=== PATIENT | female | born 1995 | race Caucasian/White ===

== ENCOUNTER 2018-03-21 18:16 | Emergency (ER) | payer OTHER ==
[2018-03-21 18:27] VITALS: BP 131/76; PULSE 88; BMI 38.7
--- NOTE | 2018-03-21 18:40 | PDOC ---
History of Present Illness - General Chief Complaint: Pain Stated Complaint: LT NECK PAIN Time Seen by Provider: 03/21/18 18:40 History Source: Patient Exam Limitations: No Limitations - History of Present Illness Initial Comments: 03/21/18 19:07 Patient was playing with small cousin on [employer] when attempting to walk the tight rope fell wrenching the left side of her neck Occurred: reports: just prior to arrival Severity: reports: mild, moderate Pain Location: reports: neck Method of Injury: Yes: direct blow, fall Modifying Factors: improves with: None Loss of Consciousness: no loss of consciousness Associated Symptoms (Fall): denies symptoms, headache, muscle spasms Past History - Travel Traveled outside of the country in the last 30 days: No Close contact w/someone who was outside of country & ill: No - Past Medical History Allergies/Adverse Reactions: Allergies Allergy/AdvReac Type Severity Reaction Status Date / Time No Known Allergies Allergy Verified 03/21/18 18:24 Home Medications: Ambulatory Orders Cyclobenzaprine HCl 10 mg PO Q8H PRN #14 tablet 03/21/18 Naproxen [Naprosyn -] 500 mg PO BID #30 tablet 03/21/18 COPD: No - Suicide/Smoking/Psychosocial Hx Smoking History: Never smoked Review of Systems - Review of Systems Able to Perform ROS?: Yes Is the patient limited Mexican proficient: Yes Constitutional: Yes: Symptoms Reported, See HPI, Malaise HEENTM: Yes: See HPI. No: Symptoms Reported, Eye Pain Respiratory: No: Symptoms reported Cardiac (ROS): No: Symptoms Reported Neurological: Yes: Symptoms reported, See HPI, Headache All Other Systems: Reviewed and Negative *Physical Exam - Vital Signs Last Vital Signs Temp Pulse Resp BP Pulse Ox 88 16 131/76 99 03/21/18 18:25 03/21/18 18:25 03/21/18 18:25 03/21/18 18:25 - Physical Exam General Appearance: Yes: Nourished, Appropriately Dressed, Apparent Distress, Mild Distress HEENT: positive: RIGOBERTO, Normal ENT Inspection, TMs Normal, Pharynx Normal Neck: positive: Tender, Supple Respiratory/Chest: positive: Lungs Clear Gastrointestinal/Abdominal: positive: Soft Musculoskeletal: positive: Normal Inspection, Muscle Spasm. negative: Vertebral Tenderness Extremity: positive: Normal Inspection, Normal Range of Motion Integumentary: positive: Normal Color, Pale Neurologic: positive: truck terminal manager II-XII NML intact, Fully Oriented, Alert, Normal Mood/ Affect, Normal Response, Motor Strength 5/5 Progress Note - Progress Note Progress Note: Neck strain, with NSAIDs and cyclobenzaprine *DC/Admit/Observation/Transfer Diagnosis at time of Disposition: Cervical muscle strain Qualifiers: Encounter type: initial encounter Qualified Code(s): S16.1XXA - Strain of muscle, fascia and tendon at neck level, initial encounter - Discharge Dispostion Disposition: HOME Condition at time of disposition: Stable Decision to Admit order: No - Referrals - Patient Instructions Printed Discharge Instructions: DI for Cervical Muscle Strain Additional Instructions: Rest, no heavy lifting or exercise until pain is resolved Hot soaks to neck and low back as often as possible/hot showers or Jacuzzis No massage or therapy until spasm is gone Continue Naprosyn 500 mg tablet, 1 tablet every 12 hours for the next 3 days then as needed for pain and swelling Cyclobenzaprine 1-10mg every 8 hours as needed for spasm If not significant improvement within 24 hours with medication and rest regime, followup with private physician for change in medications and /or therapy. - Post Discharge Activity Forms/Work/School Notes: Back to Work
[2018-03-21] MEDS ORDERED: KETOROLAC TROMETHAMINE 60 MG/2 ML VIAL IM ONE (19:08)
[2018-03-21] MEDS ORDERED: KETOROLAC TROMETHAMINE 60 MG/2 ML VIAL ONE (19:11)
[2018-03-21] MEDS ORDERED: CYCLOBENZAPRINE HCL 10 MG TABLET (FP) ONE (19:30)
[2018-03-21] MEDS ORDERED: CYCLOBENZAPRINE HCL 10 MG TABLET (FP) PO ONE (19:35)
== END 2018-03-21 19:44 | disposition home or self-care (01) ==
LOC: JERFT 18:16
PROC: 3E0233Z Introduction of Anti-inflammatory into Muscle, Percutaneous Approach (ICD-10-PCS; principal; 2018-03-21)
DX: S16.1XXA Strain of muscle, fascia and tendon at neck level, initial encounter (principal); W17.89XA Other fall from one level to another, initial encounter; Y93.89 Activity, other specified; Y92.038 Other place in apartment as the place of occurrence of the external cause; Y99.8 Other external cause status
CPT/HCPCS: 96372; 99281-25

== ENCOUNTER 2023-05-24 08:18 | Emergency (ER) | payer OTHER ==
[2023-05-24 08:33] VITALS: RESP 16; BMI 43.0
[2023-05-24 08:57] LABS: PH,URINE 5.5 (5.0-8.0); URINE APPEARANCE CLEAR; URINE BILIRUBIN NEGATIVE (NEGATIVE); URINE COLOR DK YELLOW; URINE GLUCOSE (UA) NEGATIVE (NEGATIVE); URINE KETONE NEGATIVE (NEGATIVE); URINE LEUK ESTERASE NEGATIVE (NEGATIVE); URINE NITRITE NEGATIVE (NEGATIVE); URINE PROTEIN TRACE (NEGATIVE); URINE UROBILINOGEN 0.2 mg/dL (0.2-1.0)
[2023-05-24 10:07] LABS: BASO % 0.5 % (0-2.0); EOS % 0.2 % (0-4.5); HEMATOCRIT 39.4 % (32.4-45.2); HEMOGLOBIN 13.2 GM/dL (10.7-15.3); LYMPH % 16.7 % (8-40); MCH 29.7 pg (25.7-33.7); MCHC 33.5 g/dl (32.0-36.0); MEAN CELL VOLUME 88.6 fl (80-96); MEAN PLT VOLUME 9.9 fl (7.5-11.1); MONO % 5.7 % (3.8-10.2); NEUT % 76.9 % (42.8-82.8); PLATELET COUNT 320 10^3/uL (134-434); RBC 4.45 M/mm3 (3.60-5.2); RDW 14.1 % (11.6-15.6); WHITE BLOOD COUNT 7.3 K/mm3 (4.0-10.0)
[2023-05-24 10:30] LABS: POTASSIUM 4.1 mmol/L (3.5-5.1)
[2023-05-24 10:33] LABS: ALBUMIN 3.6 g/dl (3.4-5.0); CALCIUM 9.5 mg/dL (8.5-10.1)
[2023-05-24 10:35] LABS: BLOOD UREA NITROGEN 11.3 mg/dL (7-18)
[2023-05-24 10:37] LABS: BILIRUBIN,TOTAL 0.5 mg/dL (0.2-1); CREATININE 0.5 mg/dL (0.55-1.3); TOT PROT 7.8 g/dl (6.4-8.2)
[2023-05-24 12:38] VITALS: BP 138/83; PULSE 82; TEMP 98.6
== END 2023-05-24 12:52 | disposition home or self-care (01) ==
LOC: JER 08:18
DX: O26.891 Other specified pregnancy related conditions, first trimester (principal); R10.31 Right lower quadrant pain; R11.0 Nausea; O21.9 Vomiting of pregnancy, unspecified; O99.611 Diseases of the digestive system complicating pregnancy, first trimester; K59.00 Constipation, unspecified; Z3A.00 Weeks of gestation of pregnancy not specified
CPT/HCPCS: 36415; 76817-TC; 80053; 81003; 83690; 84702; 84703; 85025; 87086; 99284-25

== ENCOUNTER 2023-06-27 15:43 | Emergency (ER) | payer OTHER ==
[2023-06-27 15:53] VITALS: BP 138/84; PULSE 110; RESP 18; TEMP 98.2; BMI 94.8
[2023-06-27] MEDS ORDERED: ONDANSETRON 4 MG/2 ML VIAL IVPUSH ONE (15:54)
[2023-06-27] MEDS ORDERED: SODIUM CHLORIDE 0.9% 500 ML INFUS.BAG IV ONE (15:54)
[2023-06-27] MEDS ORDERED: ACETAMINOPHEN 1000 MG/100 ML BAG IVPB ONE (15:54)
[2023-06-27] MEDS ORDERED: ACETAMINOPHEN INJECTION 100 ML IVPB ONE (16:25)
[2023-06-27] MEDS ORDERED: ONDANSETRON 4 MG/2 ML VIAL ONE (16:25)
[2023-06-27 16:34] LABS: HEMATOCRIT 39.1 % (32.4-45.2); HEMOGLOBIN 13.4 GM/dL (10.7-15.3); MCH 30.6 pg (25.7-33.7); MCHC 34.2 g/dl (32.0-36.0); MEAN CELL VOLUME 89.5 fl (80-96); MEAN PLT VOLUME 9.9 fl (7.5-11.1); PLATELET COUNT 297 10^3/uL (134-434); RBC 4.37 M/mm3 (3.60-5.2); RDW 13.5 % (11.6-15.6); WHITE BLOOD COUNT 10.2 K/mm3 (4.0-10.0)
[2023-06-27 16:48] LABS: EPI CELLS >36 /uL (0-25.1); HYALINE CASTS 5 /uL (0-3.1); PH,URINE 5.5 (5.0-8.0); URINE APPEARANCE CLOUDY; URINE BACTERIA 350 /uL (0-1359); URINE BILIRUBIN 1+ (NEGATIVE); URINE COLOR DK YELLOW; URINE GLUCOSE (UA) NEGATIVE (NEGATIVE); URINE KETONE 2+ (NEGATIVE); URINE LEUK ESTERASE NEGATIVE (NEGATIVE); URINE NITRITE NEGATIVE (NEGATIVE); URINE PROTEIN 1+ (NEGATIVE); URINE WBC 23 /uL (0-25.8)
[2023-06-27 17:07] LABS: POTASSIUM 3.8 mmol/L (3.5-5.1)
[2023-06-27 17:08] LABS: CALCIUM 8.8 mg/dL (8.5-10.1)
[2023-06-27 17:09] LABS: ALBUMIN 2.9 g/dl (3.4-5.0); BLOOD UREA NITROGEN 10.2 mg/dL (7-18)
[2023-06-27 17:12] LABS: CREATININE 0.5 mg/dL (0.55-1.3)
[2023-06-27 17:14] LABS: BILIRUBIN,TOTAL 0.6 mg/dL (0.2-1)
[2023-06-27 17:41] LABS: ANISOCYTOSIS 0; MACROCYTOSIS 0
[2023-06-27 18:08] LABS: URINE RBC 31.9 /uL (0-23.9)
== END 2023-06-27 18:32 | disposition home or self-care (01) ==
LOC: JER 15:43
PROC: 3E033NZ Introduction of Analgesics, Hypnotics, Sedatives into Peripheral Vein, Percutaneous Approach (ICD-10-PCS; principal; 2023-06-27)
PROC: 3E033NZ Introduction of Analgesics, Hypnotics, Sedatives into Peripheral Vein, Percutaneous Approach (ICD-10-PCS; 2023-06-27)
DX: O98.519 Other viral diseases complicating pregnancy, unspecified trimester (principal); U07.1 COVID-19; O21.9 Vomiting of pregnancy, unspecified; Z3A.11 11 weeks gestation of pregnancy
CPT/HCPCS: 0241U-QW; 36415; 80053; 81003; 85025; 87086; 99284-25; J0131

== ENCOUNTER 2024-01-14 06:13 | Inpatient (IN) | payer OTHER ==
[2024-01-14] MEDS: ELECTROLYTE-148 SOLN 1,000 ML IV SCH (07:40)
[2024-01-14] MEDS ORDERED: AMPICILLIN SODIUM 2 GM VIAL ONE (07:50)
[2024-01-14] MEDS: AMPICILLIN - 2 GM in SODIUM CHLORIDE 100 ML IVPB ONE (07:57)
[2024-01-14 08:35] LABS: BASO % 0.4 % (0-2.0); HEMATOCRIT 36.2 % (32.4-45.2); HEMOGLOBIN 12.4 GM/dL (10.7-15.3); LYMPH % 8.7 % (8-40); MCHC 34.4 g/dl (32.0-36.0); MEAN CELL VOLUME 90.1 fl (80-96); MEAN PLT VOLUME 10.6 fl (7.5-11.1); MONO % 2.9 % (3.8-10.2); PLATELET COUNT 248 10^3/uL (134-434); RBC 4.01 M/mm3 (3.60-5.2); RDW 13.8 % (11.6-15.6); WHITE BLOOD COUNT 14.5 K/mm3 (4.0-10.0)
[2024-01-14 08:52] VITALS: BMI 43.2
[2024-01-14 09:04] LABS: BLOOD UREA NITROGEN 11.1 mg/dL (7-18); CALCIUM 8.6 mg/dL (8.5-10.1)
[2024-01-14 09:07] LABS: CREATININE 0.6 mg/dL (0.55-1.3)
[2024-01-14] MEDS ORDERED: FENTANYL/BUPIVACAINE/NS/PF - PCEA - 50 ML DISP.SYRIN EP ONE ×5 (09:22→20:59)
[2024-01-14 09:30] LABS: INR 1.02 (0.83-1.09); PROTHROMBIN TIME (PATIENT) 11.5 SEC (9.7-13.0)
[2024-01-14] MEDS: FENTANYL/BUPIVACAINE/NS/PF - PCEA - 50 ML DISP.SYRIN EP SCH (09:40)
[2024-01-14] MEDS ORDERED: NALOXONE HCL 0.4 MG/ML VIAL IVPUSH PRN (09:47)
[2024-01-14] MEDS ORDERED: AMPICILLIN SODIUM 1 GM VIAL ONE ×3 (11:11→19:58)
[2024-01-14] MEDS: AMPICILLIN - 1 GM in SODIUM CHLORIDE 100 ML IVPB SCH (11:20)
[2024-01-14 12:27] LABS: HIV INTERPRETATION NEGATIVE (NEGATIVE)
[2024-01-14] MEDS ORDERED: OXYTOCIN 30 UNITS in 0.9% NS 30 UNIT/500 ML INFUS.BAG IVPB ONE ×2 (12:54→22:35)
[2024-01-14] MEDS: OXYTOCIN 30 UNITS in 0.9% NS 30 UNIT/500 ML INFUS.BAG IVPB SCH (13:00)
[2024-01-14] MEDS ORDERED: FENTANYL CITRATE/PF 50 MCG/ML VIAL ONE ×3 (15:54→18:28)
[2024-01-14] MEDS ORDERED: BUPIVACAINE HCL/PF 0.25% (2.5MG/ML) 10 ML VIAL ONE ×3 (15:54→18:28)
[2024-01-14] MEDS ORDERED: SODIUM CHLORIDE 100 ML IVPB ONE (19:58)
[2024-01-14] MEDS ORDERED: ACETAMINOPHEN 325 MG TABLET (FP) PO PRN (22:24)
[2024-01-14] MEDS ORDERED: IBUPROFEN 600 MG TABLET (FP) PO PRN (22:24)
[2024-01-14] MEDS ORDERED: LIDO 2%/EPI 1:200000 PRESRVFRE (20 ML SDVIAL) ONE (22:34)
[2024-01-14] MEDS ORDERED: morphine SULFATE/PF 1 MG/2 ML (2cc Syringe - QUVA) ONE (22:55)
[2024-01-14] MEDS ORDERED: ceFAZolin SODIUM 1 GM VIAL ONE (22:55)
[2024-01-15] MEDS ORDERED: METHYLERGONOVINE MALEATE 0.2 MG/1 ML AMP IM PRN
[2024-01-15] MEDS: OXYTOCIN 20 UNITS in 0.9% NS 20 UNIT/1,000 ML INFUS.BAG IV SCH (00:30)
[2024-01-15] MEDS ORDERED: OXYTOCIN 20 UNITS in 0.9% NS 20 UNIT/1,000 ML INFUS.BAG IV ONE (00:34)
[2024-01-15 02:00] LABS: CORD BASE EXCESS -7.1 mmol/L (0-2); CORD HCO3 18.4 mmHg (20-29); CORD PCO2 37.6 mmHg (30-78); CORD pH 7.308 (7.14-7.44)
[2024-01-15] MEDS: CEFAZOLIN SODIUM 2 GM in DEXTROSE 5%-WATER 100 ML IVPB ONE (03:14)
[2024-01-15] MEDS: IBUPROFEN 800 MG/8 ML IJ IVPB PRN (03:17)
[2024-01-15] MEDS: OXYTOCIN 30 UNITS in 0.9% NS 30 UNIT/500 ML INFUS.BAG IVPB SCH (03:18)
[2024-01-15] MEDS: DIPHTH,PERTUSS(ACELL),TET 0.5 ML DISP.SYRIN IM ONE (11:16)
[2024-01-15] MEDS ORDERED: oxyCODONE HCL 5 MG TABLET PO PRN (12:01)
[2024-01-15] MEDS: IBUPROFEN 600 MG TABLET (FP) PO PRN (15:07)
[2024-01-15] MEDS: ACETAMINOPHEN 325 MG TABLET (FP) PO PRN (17:12)
[2024-01-15] MEDS: SIMETHICONE 80 MG TAB.CHEW (FP) PO PRN (21:27)
[2024-01-15] MEDS: ONDANSETRON 4 MG/2 ML VIAL IVPUSH PRN (21:35)
[2024-01-15] MEDS: oxyCODONE HCL 5 MG TABLET PO PRN (22:56)
[2024-01-16] MEDS ORDERED: BISACODYL 10 MG SUPP.RECT RC PRN (00:01)
[2024-01-16 07:58] LABS: BASO % 0.5 % (0-2.0); EOS % 0.7 % (0-4.5); HEMATOCRIT 29.1 % (32.4-45.2); HEMOGLOBIN 9.8 GM/dL (10.7-15.3); LYMPH % 13.4 % (8-40); MCH 31.3 pg (25.7-33.7); MCHC 33.6 g/dl (32.0-36.0); MEAN CELL VOLUME 93.2 fl (80-96); MEAN PLT VOLUME 10.6 fl (7.5-11.1); MONO % 5.4 % (3.8-10.2); PLATELET COUNT 177 10^3/uL (134-434); RBC 3.12 M/mm3 (3.60-5.2); WHITE BLOOD COUNT 10.4 K/mm3 (4.0-10.0)
[2024-01-18 07:52] LABS: BASO % 0.3 % (0-2.0); EOS % 2.5 % (0-4.5); HEMATOCRIT 30.4 % (32.4-45.2); HEMOGLOBIN 10.1 GM/dL (10.7-15.3); LYMPH % 23.1 % (8-40); MCH 31.1 pg (25.7-33.7); MCHC 33.1 g/dl (32.0-36.0); MEAN CELL VOLUME 94.1 fl (80-96); MEAN PLT VOLUME 10.3 fl (7.5-11.1); MONO % 7.4 % (3.8-10.2); NEUT % 66.7 % (42.8-82.8); PLATELET COUNT 212 10^3/uL (134-434); RBC 3.23 M/mm3 (3.60-5.2); RDW 13.6 % (11.6-15.6); WHITE BLOOD COUNT 7.5 K/mm3 (4.0-10.0)
[2024-01-18 08:02] VITALS: BP 124/62; PULSE 66; RESP 16; TEMP 98.3
== END 2024-01-18 13:50 | disposition home or self-care (01) | DRG 540 ==
LOC: JDEL 06:13 → JLDR 07:30 → J3W 01-15 03:12
PROVIDERS: ADMIT Student in an Organized Health Care Education/Training Program; ATTEND Student in an Organized Health Care Education/Training Program
PROC: 10D00Z1 Extraction of Products of Conception, Low, Open Approach (ICD-10-PCS; principal; 2024-01-14)
DX: O62.0 Primary inadequate contractions (principal); O99.213 Obesity complicating pregnancy, third trimester; O99.820 Streptococcus B carrier state complicating pregnancy; Z3A.40 40 weeks gestation of pregnancy; Z37.0 Single live birth
CPT/HCPCS: 36415; 36600; 59025; 80048; 82803; 85025; 85610; 86780; 86850; 86900; 86901; 87389; 88307-TC; 90715